=== PATIENT | female | born 1955 | race Caucasian/White ===

== ENCOUNTER 2017-10-13 08:15 | Emergency (ER) | payer OTHER ==
[2017-10-13 08:29] VITALS: BP 142/67; PULSE 78; TEMP 98; BMI 28.7
[2017-10-13] MEDS ORDERED: IBUPROFEN 400 MG TABLET (FP) PO ONE ×2 (09:04→09:06)
[2017-10-13] MEDS ORDERED: DIPHTH,PERTUSS(ACELL),TET 0.5 ML DISP.SYRIN IM ONE (09:05)
--- NOTE | 2017-10-13 09:07 | PDOC ---
History of Present Illness - General Chief Complaint: Injury Stated Complaint: FALL Time Seen by Provider: 10/13/17 08:43 History Source: Patient Exam Limitations: No Limitations - History of Present Illness Initial Comments: 10/13/17 09:05 62 yr female slip and fall injured left knee causing abrasion. Past History - Past Medical History Allergies/Adverse Reactions: Allergies Allergy/AdvReac Type Severity Reaction Status Date / Time No Known Allergies Allergy Verified 10/13/17 08:18 Home Medications: Ambulatory Orders NK [No Known Home Medication] 10/13/17 COPD: No - Suicide/Smoking/Psychosocial Hx Smoking History: Former smoker Have you smoked in the past 12 months: No Information on smoking cessation initiated: No Hx Alcohol Use: No Drug/Substance Use Hx: No Substance Use Type: None Review of Systems - Review of Systems Able to Perform ROS?: Yes Is the patient limited Georgian proficient: No Constitutional: No: Symptoms Reported HEENTM: No: Symptoms Reported Respiratory: No: Symptoms reported Cardiac (ROS): No: Symptoms Reported ABD/GI: No: Symptoms Reported Integumentary: Yes: Symptoms Reported *Physical Exam - Vital Signs Last Vital Signs Temp Pulse Resp BP Pulse Ox 98 F 78 20 142/67 100 10/13/17 08:18 10/13/17 08:18 10/13/17 08:18 10/13/17 08:18 10/13/17 08:18 - Physical Exam General Appearance: Yes: Nourished, Appropriately Dressed HEENT: positive: EOMI, JENSEN Musculoskeletal: positive: Normal Inspection Extremity: positive: Normal Capillary Refill, Tender (mediallly to the patella ) , Erythema (abrasion to left knee ) Integumentary: positive: Ecchymosis Neurologic: positive: Fully Oriented, Alert, Normal Mood/Affect, Normal Response , Motor Strength 5/5 Procedures - Laceration/Wound Repair Left Wound Length: to 2.5 cm Wound Explored: clean Wound's Depth, Shape: superficial (abrasion to the knee ) Irrigated w/ Saline: Yes Betadine Prep: Yes Progress: 10/13/17 14:12 bacitracin applied to the knee pt has full range of motion if the knee emre wrap placed ED Treatment Course - RADIOLOGY Radiology Studies Ordered: Category Date Time Status KNEE 3 POS-LEFT [RAD] Stat Radiology 10/13/17 08:44 Ordered Medical Decision Making - Medical Decision Making 10/13/17 09:07 cc: slip and fall on ice causing abrasion to the knee no deformity , minimal swelling to the knee will get xray to r/o fracture ibuprofen and boostrix *DC/Admit/Observation/Transfer Diagnosis at time of Disposition: Abrasion Knee contusion Qualifiers: Encounter type: initial encounter Laterality: left Qualified Code(s): S80.02XA - Contusion of left knee, initial encounter - Discharge Dispostion Disposition: HOME Condition at time of disposition: Good - Referrals Referrals: Henok Mcneil MD [Primary Care Provider] - Dex Quarles MD [Staff Physician] - - Patient Instructions Additional Instructions: elevate and apply ice every 2hrs for 20 minutes for the next 2 days while awake take ibuprofen every 8hrs for pain, next dose you can take at 515pm you can take tylenol in between if needed follow with the orthopedist if any worsening symptoms - Post Discharge Activity Forms/Work/School Notes: Back to Work
== END 2017-10-13 09:30 | disposition home or self-care (01) ==
LOC: JERFT 08:15
PROC: 3E0234Z Introduction of Serum, Toxoid and Vaccine into Muscle, Percutaneous Approach (ICD-10-PCS; principal; 2017-10-13)
DX: S80.212A Abrasion, left knee, initial encounter (principal); W00.0XXA Fall on same level due to ice and snow, initial encounter; Y93.89 Activity, other specified; Y92.89 Other specified places as the place of occurrence of the external cause; Y99.8 Other external cause status
CPT/HCPCS: 73562-TC-LT-FY; 90715; 99281-25